=== PATIENT | male | born 1970 ===

== ENCOUNTER 2021-12-15 06:56 | Day surgery (SDC) | payer BC ==
[~2021-12-15 06:56] MED LIST: Lactated Ringers 1,000 ML IV SCH; Lidocaine 1%/Sod Bicarbonate in NS 8.4% 1 ML Syringe IDERM PRN; Sodium Chloride 0.9% 10 ML Syringe FLUSH PRN; Sodium Chloride 0.9% 10 ML Syringe FLUSH SCH
[2021-12-15] MEDS ORDERED: Propofol 200 MG/20 ML SDV ONE ×3 (06:58→08:02)
[2021-12-15] MEDS ORDERED: Midazolam 1 MG/ML 2 ML SDV ONE (06:58)
== END 2021-12-15 09:10 | disposition home or self-care (01) ==
LOC: JD.SDS 06:56
PROVIDERS: ATTEND Surgery
DX: Z12.11 Encounter for screening for malignant neoplasm of colon (principal); K62.89 Other specified diseases of anus and rectum; K64.8 Other hemorrhoids; K64.4 Residual hemorrhoidal skin tags; I10 Essential (primary) hypertension; E78.00 Pure hypercholesterolemia, unspecified; G47.33 Obstructive sleep apnea (adult) (pediatric); E66.3 Overweight; Z79.899 Other long term (current) drug therapy; Z98.890 Other specified postprocedural states
CPT/HCPCS: 45380; J2250; J2704; J7120; 00812